=== PATIENT | female | born 1950 | race Caucasian/White ===

== ENCOUNTER 2019-07-27 14:21 | Outpatient (CLI) | payer MEDICARE, BC ==
--- NOTE | 2019-07-27 16:15 | MMO ---
Bilateral MAMMO Bilat Screen [facility]. CLINICAL HISTORY: Patient is 68 years old and is seen for screening. The patient has no family history of breast cancer. The patient has no personal history of cancer. The patient has a history of right Excisional Biopsy in October, - Benign. VIEWS: The views performed were: bilateral craniocaudal with tomosynthesis and bilateral mediolateral oblique with tomosynthesis. FILMS COMPARED: The present examination has been compared to prior imaging studies performed at [facility] on 03/07/2010, 08/04/2014, 08/16/2015 and 08/05/2017. This study has been interpreted with the assistance of computer-aided detection. MAMMOGRAM FINDINGS: The breasts are heterogeneously dense, which could obscure a lesion on mammography. Benign calcifications are noted bilaterally. There are no suspicious masses, suspicious calcifications, or new areas of architectural distortion. IMPRESSION: THERE IS NO MAMMOGRAPHIC EVIDENCE OF MALIGNANCY. A ROUTINE FOLLOW-UP MAMMOGRAM IN 1 YEAR IS RECOMMENDED. THE RESULTS OF THIS EXAM WERE SENT TO THE PATIENT. ACR BI-RADS Category 2 - Benign finding MAMMOGRAPHY NOTE: 1. A negative mammogram report should not delay a biopsy if a dominant of clinically suspicious mass is present. 2. Approximately 10% to 15% of breast cancers are not detected by mammography. 3. Adenosis and dense breasts may obscure an underlying neoplasm. Reported by: MYRA STOCK MD Electonically Signed: [id number]
== END 2019-07-27 14:22 | disposition home or self-care (01) ==
LOC: BICMAMMO 14:21
PROVIDERS: ATTEND Internal Medicine
DX: Z12.31 Encounter for screening mammogram for malignant neoplasm of breast (principal); Z91.89 Other specified personal risk factors, not elsewhere classified
CPT/HCPCS: 77063; 77067

== ENCOUNTER 2019-08-26 08:41 | Outpatient (CLI) | payer MEDICARE, BC ==
--- NOTE | 2019-08-26 14:02 | NM ---
NUCLEAR MEDICINE BRAIN IMAGING: HISTORY: Right-sided tremors. Unspecified abnormal involuntary movements. TECHNIQUE: A Vero scan with axial tomographic images of the brain was obtained 3 hours following the intravenous administration of 4.7mCi I-123 Ioflupane. The patient was pretreated with 130 mg of oral potassium iodide 1 hour prior to the injection. FINDINGS: There is loss of normal symmetric comma shaped shaped uptake in the striata bilaterally. IMPRESSION: Parkinsonian syndrome. (Parkinsonian syndromes include Parkinson's disease, multiple system atrophy, progressive supranuclea r palsy, dementia with Lewy bodies and cortical basal degeneration).
== END 2019-08-26 08:42 | disposition home or self-care (01) ==
LOC: NM 08:41
PROVIDERS: ATTEND Psychiatry & Neurology Neurology
DX: R25.9 Unspecified abnormal involuntary movements (principal); G20 Parkinson's disease
CPT/HCPCS: 78607; A9584